=== PATIENT | female | born 1990 | race Caucasian/White ===

== ENCOUNTER 2023-06-26 10:04 | Emergency (ER) | payer SELFPAY ==
[~2023-06-26] VITALS: Ht 165.1 cm; Wt 47.7 kg
[2023-06-26 10:09] VITALS: BP 110/76; TEMP 98.8
[2023-06-26] MEDS ORDERED: ZOFRAN ODT4 MG PO (10:44)
[2023-06-26 11:15] VITALS: PULSE 75
== END 2023-06-26 11:15 | disposition home or self-care (01) ==
LOC: COL.ER 10:04
DX: U07.1 COVID-19 (principal); R09.81 Nasal congestion; R50.9 Fever, unspecified; R05.9 Cough, unspecified; R53.83 Other fatigue; R53.1 Weakness; R52 Pain, unspecified; R11.0 Nausea; F17.210 Nicotine dependence, cigarettes, uncomplicated